=== PATIENT | female | born 1950 | race Caucasian/White ===

== ENCOUNTER 2017-11-03 17:32 | Emergency (ER) | payer MEDICARE, BC ==
[2017-11-03] MEDS ORDERED: Lidocaine 1% with EPINEPHrine 1:100,000 20 ML MDV ONE (17:45)
--- NOTE | 2017-11-04 01:19 | ER ---
HISTORY OF PRESENT ILLNESS: A 67-year-old lady here with complaints of a fish hook that became embedded on the patient's posterior right thigh just below the buttock. She states that it happened accidentally while they were fishing. The fishhook had been in the water previous. She tells me that she is current on her tetanus. The patient states that it is only localized pain that she is feeling and she is not aware of any bleeding because it has hooked through her slacks. OBJECTIVE: GENERAL APPEARANCE: The patient is awake and alert. No obvious respiratory distress. EXTREMITIES: Examining the patient's posterior right thigh reveals the fishhook is high on the posterior thigh, again just below the buttocks crease. It is a small treble hook. INITIAL TREATMENT: I cut away the patient's slacks so I could see the embedded hook. One of the three hooks is embedded into the skin. There is no active bleeding at this time. TREATMENT PLAN: The site was swabbed with alcohol after which I injected about 1 mL of 1% lidocaine with epinephrine locally for anesthesia, then using some cord, I removed the hook after first disabling the other two hooks by taping over them. I used the string yank method and on the first attempt, the hook came out without any resistance. There was only about 1 drop of blood after the hook was removed. I cleansed the area once again with alcohol. Nursing staff will apply antibiotic ointment and a Band-Aid. She is to monitor for any type of infection. [id number] medications should be used as needed for pain control. DIAGNOSIS: [place] removal. CLARITZA/RM /[id number]
== END 2017-11-03 17:55 | disposition home or self-care (01) ==
LOC: LB.ED 17:32
DX: S70.351A Superficial foreign body, right thigh, initial encounter (principal); W45.8XXA Other foreign body or object entering through skin, initial encounter
CPT/HCPCS: 99283